=== PATIENT | male | born 1960 | race Caucasian/White ===

== ENCOUNTER → 2019-03-22 | Outpatient (CLI) | payer OTHER ==
--- NOTE | 2019-03-23 07:06 | ECHO ---
DATE OF STUDY: 03/22/2019 REFERRING PHYSICIAN: Dr. Vlad Lim INDICATION: Chest pain, unspecified. HEIGHT: 6 feet, 1 inch. WEIGHT: 223 pounds. 2D MEASUREMENTS: Aortic annulus 2.3 cm Aortic root 3.2 cm Left atrium 4.0 cm Ventricular septum 0.99 cm Posterior wall 1.02 cm Left ventricle diastole 4.8 cm Inferior vena cava 2.1 cm DOPPLER MEASUREMENTS: Aortic valve velocity 113 cm/s LVOT velocity 102 cm/s No aortic regurgitation. Trace mitral regurgitation. Very mild tricuspid regurgitation. No pulmonic regurgitation. Aortic valve velocity 113 cm/s LVOT velocity 102 cm/s Mitral E velocity 54.8 cm/s Mitral A velocity 75.0 cm/s Mitral deceleration time 236 ms Pulmonary acceleration time 113 ms MITRAL ANNULAR TISSUE DOPPLER: E prime septal 7.1 cm/s E prime lateral 6.6 cm/s DESCRIPTION: Rhythm was sinus bradycardia. Image quality was fair. This was a 2D, M mode, color flow Doppler and pulse wave Doppler examination and included mitral annular tissue Doppler. CONCLUSIONS: 1. Normal left ventricle internal dimensions and wall thickness. Normal regional LV wall motion and wall thickening. Normal LV systolic function. LVEF 60% by visual estimate. Grade 1 LV diastolic dysfunction. 2. No pericardial effusion. 3. Mild mitral annular calcification. Trace mitral regurgitation. 4. Otherwise normal appearing echocardiogram Doppler findings.
== END ==
LOC: M CARPUL 08:58
PROVIDERS: ATTEND Internal Medicine
DX: R00.1 Bradycardia, unspecified (principal); I34.0 Nonrheumatic mitral (valve) insufficiency; R07.9 Chest pain, unspecified

== ENCOUNTER → 2022-04-11 | Outpatient (CLI) | payer OTHER ==
[~2022-04-11] MED LIST: ASPI81TA26 PO; CVS5000S2 PO; D3 H10002 PO; EZET10TA21 PO; MULT-90 PO; ROSU40TA4 PO
== END ==
LOC: M LABSMTC 10:45
PROVIDERS: ATTEND Anesthesiology
DX: Z01.812 Encounter for preprocedural laboratory examination (principal); Z11.52 Encounter for screening for COVID-19

== ENCOUNTER 2022-04-14 09:40 | Day surgery (SDC) | payer OTHER ==
[~2022-04-14] VITALS: Ht 188 cm; Wt 99.7 kg
[2022-04-14] MEDS ORDERED: propofoL 200 MG/20 ML VIAL As Ordered ONE (11:51)
[2022-04-14] MEDS ORDERED: LIDOCAINE 2% 100MG/5ML SDV (FOR ANES.) As Ordered ONE (11:51)
[2022-04-14 12:10] VITALS: BP 131/79
== END 2022-04-14 13:41 | disposition home or self-care (01) ==
LOC: M OPP 09:40
PROVIDERS: ATTEND Internal Medicine Gastroenterology
DX: Z12.11 Encounter for screening for malignant neoplasm of colon (principal); K63.5 Polyp of colon; K64.0 First degree hemorrhoids; Z79.02 Long term (current) use of antithrombotics/antiplatelets; Z79.82 Long term (current) use of aspirin; Z79.899 Other long term (current) drug therapy; E78.00 Pure hypercholesterolemia, unspecified; Z87.442 Personal history of urinary calculi

== ENCOUNTER → 2024-04-20 | Outpatient (CLI) | payer OTHER ==
[~2024-04-20] MED LIST changes: -ROSU40TA4 PO; +ROSU40TA81 PO
== END ==
LOC: M PLAIMG 10:46
PROVIDERS: ATTEND Nurse Practitioner Family
DX: N20.0 Calculus of kidney (principal)

== ENCOUNTER → 2024-07-17 | Outpatient (CLI) | payer OTHER | LOC: M SLEEP 20:00 | PROVIDERS: ATTEND Internal Medicine | DX: G47.33 Obstructive sleep apnea (adult) (pediatric) (principal) ==

== ENCOUNTER → 2024-12-11 | Outpatient (CLI) | payer OTHER ==
[~2024-12-11] MED LIST changes: -EZET10TA21 PO; +EZET10TA57 PO
== END ==
LOC: M SLEEP 20:00
PROVIDERS: ATTEND Internal Medicine
DX: G47.33 Obstructive sleep apnea (adult) (pediatric) (principal)